=== PATIENT | female | born 1995 ===

== ENCOUNTER 2022-03-09 06:45 | Inpatient (IN) ==
[~2022-03-09 06:45] MED LIST: *HR* Nalbuphine 10 MG/ML AMPUL IV PRN; Azithromycin 500 MG in 0.9 % Sodium Chloride 250 ML IVPB PRN; Famotidine 20 MG/2 ML VIAL IVP PRN; Lidocaine 1% 20 ML MDV INFILT PRN; Metoclopramide 10 MG/2 ML VIAL IVP PRN; Naloxone 0.4 MG/ML INJ IVP PRN; Ondansetron 4 MG/2 ML VIAL IVP PRN; miSOPROStoL 25 MCG TABLET PO PRN
[2022-03-09 07:14] LABS: Basophils % 0.3 %; Eosinophils # 0.1 K/mcL (0.0-0.6); Eosinophils % 0.9 %; Hematocrit 40.5 % (35.3-44.9); Hemoglobin 13.4 g/dL (11.5-15.4); Immature Granulocytes % 0.7 % (0-4); Lymphocytes # 1.9 K/mcL (0.6-4.6); Mean Corpuscular HGB Conc 33.1 g/dL (31.6-35.5); Mean Corpuscular Hemoglobin 30.2 pg (28.0-33.3); Mean Corpuscular Volume 91.4 fL (83.0-100.0); Mean Platelet Volume 10.7 fL (9.4-12.4); Monocytes # 0.5 K/mcL (0.0-1.3); Monocytes % 7.1 %; Neutrophils # 4.8 K/mcL (1.6-8.9); Platelet Count 161 K/mcL (140-400); Red Blood Count 4.43 M/mcL (3.82-4.97); Red Cell Distribution Width 14.2 % (11.5-14.5); White Blood Count 7.4 K/mcL (4.3-11.1)
[2022-03-09] MEDS ORDERED: Oxytocin 30 UNIT/503 ML BAG IVC SCH (12:15)
[2022-03-09] MEDS ORDERED: *HR* FentaNYL (PF) 100 MCG/2 ML VIAL EP ONE (12:29)
[2022-03-09] MEDS ORDERED: EPHEDrine 50 MG/ML VIAL IVP PRN (12:29)
[2022-03-09] MEDS ORDERED: Ropivacaine/PF 0.2% 20 ML VIAL EP ONE (12:29)
[2022-03-09] MEDS ORDERED: Epidural Premix (fent/bupiv) 110 ML EP SCH (12:30)
[2022-03-09] MEDS: Ringers Solution, Lactated 1,000 ML IVC SCH ×2 (13:00→15:33)
[2022-03-09 16:04] LABS: Amphetamine Screen,Urine Negative ng/mL (Cutoff=1000); Barbiturate Screen,Urine Negative ng/mL (Cutoff=200); Benzodiazepines Screen,Urine Negative ng/mL (Cutoff=200); Cannabinoid Screen,Urine Negative ng/mL (Cutoff = 50); Cocaine Screen,Urine Negative ng/mL (Cutoff= 300); Opiate Screen,Urine Negative ng/mL (Cutoff=300); Phencyclidine Screen,Urine Negative ng/mL (Cutoff=25)
[2022-03-10] MEDS ORDERED: Benzocaine/Menthol 56 GM AEROSOL SPRAY TP PRN (02:41)
[2022-03-10] MEDS ORDERED: Lanolin 7 G OINT...G. TP PRN (02:41)
[2022-03-10] MEDS ORDERED: Oxytocin 30 UNIT/503 ML BAG IVC SCH (02:41)
[2022-03-10] MEDS ORDERED: Ondansetron ODT 4 MG TAB.RAPDIS SL PRN (02:41)
[2022-03-10] MEDS ORDERED: OXYTOCIN/RINGERS LACTATE 10 UNIT/166.6 ML BAG IVC ONE (02:41)
[2022-03-10] MEDS: Ibuprofen 600 MG TABLET PO SCH ×4 (03:09→20:43)
[2022-03-10] MEDS: Prenatal Vit/FA 1 EACH TABLET PO SCH (08:41)
[2022-03-10] MEDS: Acetaminophen 325 MG TABLET PO SCH ×3 (08:41→20:43)
[2022-03-11] MEDS: Ibuprofen 600 MG TABLET PO SCH ×2 (04:00→09:08)
[2022-03-11] MEDS: Acetaminophen 325 MG TABLET PO SCH ×2 (04:00→09:09)
[2022-03-11 08:04] VITALS: BP 90/56; PULSE 87; TEMP 97.6; O2SAT 98
[2022-03-11] MEDS: Prenatal Vit/FA 1 EACH TABLET PO SCH (09:09)
== END 2022-03-11 12:50 | disposition home or self-care (01) | DRG 560 ==
LOC: 1NENULAB → 1NENUOBS 03-10 02:41
PROVIDERS: ADMIT Obstetrics & Gynecology; ATTEND Obstetrics & Gynecology